=== PATIENT | female | born 1945 | race Two or more races ===

== ENCOUNTER → 2024-11-01 | Emergency (ER) | payer OTHER ==
[~2024-11-01] VITALS: Ht 167.6 cm; Wt 68.0 kg
[~2024-11-01] MED LIST: ALPRAZOLAM XR0.5 MG; LEVO-T50 MCG; LIPITOR20 MG; LIPOFEN50 MG; LISINOPRIL40 MG; PROTONIX40 MG; VERELAN PM200 MG
[2024-11-01 09:17] LABS: HEMATOCRIT 37.9 % (36.0-45.00); HEMOGLOBIN 12.4 g/dL (12.0-15.00); MEAN CELL VOLUME 91.6 fL (80.00-100.00); MEAN CORPUSCULAR HGB CONC 32.7 g/dl (32.0-36.0); PLATELET COUNT 319 K/uL (150-450); RED BLOOD COUNT 4.14 M/uL (4.00-6.00); RED CELL DISTRIBUTION WIDTH 13.6 % (11.5-14.5)
[2024-11-01 09:50] LABS: CALCIUM 9.9 mg/dL (8.5-10.1); CREATININE SERUM 0.87 mg/dL (0.55-1.02); GFR 62.81; POTASSIUM 4.12 mEq/L (3.5-5.1)
[2024-11-01 09:56] LABS: PH,URINE 5.5 (5.0-8.0); URINE APPEARANCE Turbid; URINE BILIRRUBIN Negative (NEGATIVE); URINE BLOOD Large; URINE COLOR Dark Yellow; URINE GLUCOSE Negative (NEGATIVE); URINE KETONE Negative (NEGATIVE); URINE LEUKOCYTE Large; URINE NITRATE Positive
[2024-11-01 10:00] LABS: URINE BACTERIA 5556.7 uL (0.0-1933); URINE EPITHELIAL CELLS 18.9 uL (0.0-38.8); URINE RBC 382.9 uL (0.0-20.8)
[2024-11-01 10:23] LABS: URINE CAST 0.58 uL (0.0-1.40); URINE PROTEIN 300 (NEGATIVE); URINE WBC > 5548.3 uL (0.0-23.2)
== END | disposition left against medical advice (07) ==
LOC: ER 04:33
PROVIDERS: General Practice
DX: N39.0 Urinary tract infection, site not specified (principal); I10 Essential (primary) hypertension; E03.9 Hypothyroidism, unspecified; Z88.8 Allergy status to other drugs, medicaments and biological substances